=== PATIENT | female | born 1975 | race African-American/Black ===

== ENCOUNTER → 2023-07-20 | Day surgery (SDC) | payer OTHER | END | disposition home or self-care (01) | LOC: JRAD 11:16 → JRADUS-SUR 11:16 | PROVIDERS: ATTEND Obstetrics & Gynecology | PROC: BU081ZZ Plain Radiography of Uterus and Fallopian Tubes using Low Osmolar Contrast (ICD-10-PCS; principal; 2023-07-20) | DX: Z31.41 Encounter for fertility testing (principal); N97.8 Female infertility of other origin | CPT/HCPCS: 58340; 74740-TC-FY; 76000-TC-FY; 84703 ==